=== PATIENT | female | born 1975 | race African-American/Black ===

== ENCOUNTER 2017-10-18 17:43 | Emergency (ER) | payer OTHER, MEDICAID ==
[~2017-10-18] VITALS: Ht 165.1 cm; Wt 68.2 kg
[2017-10-18] MEDS ORDERED: ACETAMINOPHEN 325 MG TABLET PO ONE (18:45)
[2017-10-18 20:17] VITALS: BP 112/76
[2017-10-18 21:10] LABS: INFLUENZA TYPE A NEGATIVE FOR TYPE A (NEGATIVE); INFLUENZA TYPE B NEGATIVE FOR TYPE B (NEGATIVE)
== END 2017-10-18 20:44 | disposition home or self-care (01) ==
LOC: EMS 17:46
DX: J40 Bronchitis, not specified as acute or chronic (principal); J11.1 Influenza due to unidentified influenza virus with other respiratory manifestations; F84.0 Autistic disorder
CPT/HCPCS: 87804; 99284

== ENCOUNTER 2018-04-11 18:23 | Emergency (ER) | payer OTHER, MEDICAID ==
[~2018-04-11] VITALS: Ht 157.5 cm; Wt 54.5 kg
[2018-04-11] MEDS ORDERED: ABX PO (18:31)
[2018-04-11 18:43] LABS: BASOPHILS % (AUTO) 0.4 % (0.0-2.0); EOSINOPHILS % (AUTO) 0.7 % (1.0-6.0); HEMATOCRIT 28.7 % (36-46); HEMOGLOBIN 9.8 g/dL (12.0-16.0); LYMPHOCYTES # (AUTO) 1.9 K/uL (1.0-4.8); LYMPHOCYTES % (AUTO) 46.3 % (22.0-44.0); MEAN CORPUSCULAR HEMOGLOBIN 36.7 pg (26.0-34.0); MEAN CORPUSCULAR HGB CONC 34.1 G/dL (31.0-37.0); MEAN CORPUSCULAR VOLUME 107 fL (80-100); MONOCYTES # (AUTO) 0.2 K/uL (0.1-1.0); MONOCYTES % (AUTO) 5.4 % (2.0-9.0); NEUTROPHILS % (AUTO) 47.2 % (40.0-70.0); PLATELET COUNT (AUTO) 161 K/uL (150-450); RED BLOOD CELL COUNT(AUTO) 2.67 MIL/uL (4.00-5.20); RED CELL DISTRIBUTION WIDTH 20.9 % (11.5-14.5)
[2018-04-11 18:50] LABS: PLATELET MORPHOLOGY COMMENT LARGE PLTS PRESENT
[2018-04-11 18:55] LABS: ANION GAP 7 mmol/L (8-16); CALCIUM, TOTAL 8.6 mg/dL (8.8-10.5); CARBON DIOXIDE 29 mmol/L (22-29); CHLORIDE 109 mmol/L (98-107); CREATININE 0.63 mg/dL (0.60-1.30); GLOMERULAR FILTR. RATE CALC > 60 mL/min (>60); GLUCOSE,RANDOM 79 mg/dL (70-110); POTASSIUM 3.1 mmol/L (3.5-5.1); SODIUM SERUM 145 mmol/L (136-145); UREA NITROGEN, BLOOD 14 mg/dL (7-18)
[2018-04-11 18:59] LABS: ALANINE AMINOTRANSFERASE 112 U/L (12-78); ALBUMIN 4.3 g/dL (3.4-5.0); ALKALINE PHOSPHATASE 68 U/L (46-116); ASPARTATE AMINOTRANSFERASE 85 U/L (15-37); TOTAL PROTEIN, SERUM 7.2 g/dL (6.4-8.2)
[2018-04-11] MEDS ORDERED: ONDANSETRON HCL 4 MG/2 ML VIAL IVP ONE (20:45)
[2018-04-11] MEDS ORDERED: MORPHINE SULFATE 4 MG/ML SYRINGE IVP ONE (20:45)
[2018-04-11] MEDS ORDERED: SODIUM CHLORIDE 0.9% 1,000 ML IV ONE (20:45)
[2018-04-11] MEDS ORDERED: SODIUM CHLORIDE 0.9% 100 ML ONE (21:34)
[2018-04-11] MEDS ORDERED: IOVERSOL 320 MG/ML 100 ML VIAL ONE (21:34)
[2018-04-11 22:49] LABS: LIPASE 135 U/L (73-393)
[2018-04-12] MEDS ORDERED: METOCLOPRAMIDE HCL 5 MG/ML 2 ML VIAL IVP ONE
[2018-04-12] MEDS ORDERED: POTASSIUM CHLORIDE 10% 40 MEQ/30 ML LIQUID UDCUP PO ONE (02:30)
[2018-04-12 02:52] VITALS: BP 109/78
== END 2018-04-12 02:52 | disposition home or self-care (01) ==
LOC: EMS 18:26
DX: N83.201 Unspecified ovarian cyst, right side (principal); E87.6 Hypokalemia; R74.0 Nonspecific elevation of levels of transaminase and lactic acid dehydrogenase [LDH]
CPT/HCPCS: 36415; 71045; 74177; 76856; 80053; 83690; 84484; 84703; 85025; 93005; 96361; 96374; 96375; 99285; J2270; J2405; J2765; J7030; J7050; Q9967

== ENCOUNTER 2018-07-29 16:56 | Emergency (ER) | payer OTHER, MEDICAID ==
[~2018-07-29] VITALS: Ht 152.4 cm; Wt 46.4 kg
[~2018-07-29 16:56] MED LIST: ABX PO
[2018-07-29 17:06] VITALS: BP 99/63
[2018-07-29] MEDS ORDERED: DEPOP150I IM (17:15)
== END 2018-07-29 18:48 | disposition left against medical advice (07) ==
LOC: EMS 16:57
DX: R10.30 Lower abdominal pain, unspecified (principal); R11.2 Nausea with vomiting, unspecified; Z53.21 Procedure and treatment not carried out due to patient leaving prior to being seen by health care provider

== ENCOUNTER 2018-08-19 20:18 | Emergency (ER) | payer OTHER, MEDICAID ==
[~2018-08-19] VITALS: Ht 152.4 cm; Wt 51.0 kg
[~2018-08-19 20:18] MED LIST changes: -ABX PO; +DEPOP150I IM
[2018-08-19] MEDS ORDERED: AMOX1TAB16 PO (20:22)
[2018-08-19 21:00] LABS: BASOPHILS % (AUTO) 0.6 % (0.0-2.0); EOSINOPHILS % (AUTO) 0.2 % (1.0-6.0); HEMOGLOBIN 8.8 g/dL (12.0-16.0); LYMPHOCYTES # (AUTO) 0.8 K/uL (1.0-4.8); LYMPHOCYTES % (AUTO) 23.3 % (22.0-44.0); MEAN CORPUSCULAR HEMOGLOBIN 38.6 pg (26.0-34.0); MEAN CORPUSCULAR HGB CONC 33.9 G/dL (31.0-37.0); MEAN CORPUSCULAR VOLUME 114 fL (80-100); MONOCYTES # (AUTO) 0.2 K/uL (0.1-1.0); MONOCYTES % (AUTO) 4.6 % (2.0-9.0); NEUTROPHILS # (AUTO) 2.6 K/uL (1.8-7.7); NEUTROPHILS % (AUTO) 71.3 % (40.0-70.0); PLATELET COUNT (AUTO) 180 K/uL (150-450); RED BLOOD CELL COUNT(AUTO) 2.28 MIL/uL (4.00-5.20); RED CELL DISTRIBUTION WIDTH 25.1 % (11.5-14.5)
[2018-08-19 21:07] LABS: ANION GAP 11 mmol/L (8-16); CARBON DIOXIDE 26 mmol/L (22-29); CHLORIDE 104 mmol/L (98-107); CREATININE 0.55 mg/dL (0.60-1.30); GLOMERULAR FILTR. RATE CALC > 60 mL/min (>60); GLUCOSE,RANDOM 131 mg/dL (70-110); POTASSIUM 3.2 mmol/L (3.5-5.1); SODIUM SERUM 141 mmol/L (136-145); UREA NITROGEN, BLOOD 16 mg/dL (7-18)
[2018-08-19] MEDS ORDERED: DIPHENOXYLATE/ATROP 2.5-0.025 MG/5 ML ORAL.SYG LIQUID PO ONE (21:15)
[2018-08-19] MEDS ORDERED: SODIUM CHLORIDE 0.9% 1,000 ML IV ONE (21:15)
[2018-08-19] MEDS ORDERED: ONDANSETRON HCL 4 MG/2 ML VIAL IVP ONE (21:15)
[2018-08-19 21:16] LABS: PLATELET MORPHOLOGY COMMENT LARGE PLTS PRESENT
[2018-08-19 21:18] LABS: ALANINE AMINOTRANSFERASE 57 U/L (12-78); ALBUMIN 4.6 g/dL (3.4-5.0); ALKALINE PHOSPHATASE 64 U/L (46-116); ASPARTATE AMINOTRANSFERASE 56 U/L (15-37); HCG,QUANTITATIVE < 1 mIU/mL (0-6); LIPASE 80 U/L (73-393)
[2018-08-19] MEDS ORDERED: KETOROLAC TROMETHAMINE 30 MG/ML VIAL IVP ONE (22:15)
[2018-08-19] MEDS ORDERED: POTASSIUM CHLORIDE 10% 40 MEQ/30 ML LIQUID UDCUP PO ONE (22:15)
[2018-08-19 23:05] VITALS: BP 135/87
== END 2018-08-19 23:18 | disposition home or self-care (01) ==
LOC: EMS 20:19
DX: K52.9 Noninfective gastroenteritis and colitis, unspecified (principal); F84.0 Autistic disorder; Z79.899 Other long term (current) drug therapy
CPT/HCPCS: 36415; 80053; 83690; 84702; 85025; 96361; 96374; 96375; 99284; J1885; J2405; J7030

== ENCOUNTER 2018-09-24 18:05 | Emergency (ER) | payer MEDICAID, OTHER ==
[~2018-09-24] VITALS: Ht 152.4 cm; Wt 54.5 kg
[~2018-09-24 18:05] MED LIST changes: +AMOX1TAB16 PO
[2018-09-24 18:44] LABS: BASOPHILS % (AUTO) 0.5 % (0.0-2.0); EOSINOPHILS % (AUTO) 1.4 % (1.0-6.0); HEMATOCRIT 26.9 % (36-46); HEMOGLOBIN 9.2 g/dL (12.0-16.0); LYMPHOCYTES # (AUTO) 1.5 K/uL (1.0-4.8); MEAN CORPUSCULAR HEMOGLOBIN 41.2 pg (26.0-34.0); MEAN CORPUSCULAR HGB CONC 34.3 G/dL (31.0-37.0); MEAN CORPUSCULAR VOLUME 120 fL (80-100); MONOCYTES # (AUTO) 0.1 K/uL (0.1-1.0); MONOCYTES % (AUTO) 4.4 % (2.0-9.0); NEUTROPHILS # (AUTO) 1.3 K/uL (1.8-7.7); NEUTROPHILS % (AUTO) 44.7 % (40.0-70.0); PLATELET COUNT (AUTO) 204 K/uL (150-450); RED BLOOD CELL COUNT(AUTO) 2.24 MIL/uL (4.00-5.20); RED CELL DISTRIBUTION WIDTH 17.8 % (11.5-14.5)
[2018-09-24 18:53] LABS: ANION GAP 3 mmol/L (8-16); CALCIUM, TOTAL 8.6 mg/dL (8.8-10.5); CARBON DIOXIDE 32 mmol/L (22-29); CHLORIDE 108 mmol/L (98-107); CREATININE 0.55 mg/dL (0.60-1.30); GLOMERULAR FILTR. RATE CALC > 60 mL/min (>60); GLUCOSE,RANDOM 93 mg/dL (70-110); POTASSIUM 3.7 mmol/L (3.5-5.1); SODIUM SERUM 143 mmol/L (136-145); UREA NITROGEN, BLOOD 16 mg/dL (7-18)
[2018-09-24 19:03] LABS: ALANINE AMINOTRANSFERASE 49 U/L (12-78); ALBUMIN 4.4 g/dL (3.4-5.0); ALKALINE PHOSPHATASE 69 U/L (46-116); ASPARTATE AMINOTRANSFERASE 73 U/L (15-37); HCG,QUANTITATIVE < 1 mIU/mL (0-6); LIPASE 119 U/L (73-393)
[2018-09-24] MEDS ORDERED: SODIUM CHLORIDE 0.9% 1,000 ML IV ONE (19:30)
[2018-09-24 20:05] LABS: C-REACTIVE PROTEIN QUANT < 0.05 mg/dL (0.00-0.30)
[2018-09-24 21:40] VITALS: BP 114/75
[2018-09-24 21:50] LABS: APPEARANCE,URINE CLOUDY (CLEAR); BILIRUBIN,URINE NEGATIVE (NEGATIVE); GLUCOSE, URINE (UA) NEGATIVE (NEGATIVE); KETONES,URINE NEGATIVE (NEGATIVE); LEUKOCYTE ESTERASE ,URINE TRACE (NEGATIVE); NITRATE,URINE NEGATIVE (NEGATIVE); OCCULT BLOOD,URINE NEGATIVE (NEGATIVE); PH,URINE 7.5 (5.0-8.0); PROTEIN,URINE NEGATIVE (NEGATIVE)
[2018-09-24 21:59] LABS: BACTERIA,URINE Many /HPF (None Seen); RBC,URINE None Seen /HPF (0-2); SQUAMOUS EPITHELIAL CELL,UR Few /LPF (None Seen)
== END 2018-09-24 22:03 | disposition home or self-care (01) ==
LOC: EMS 18:05
DX: K59.00 Constipation, unspecified (principal)
CPT/HCPCS: 36415; 74177; 80053; 81001; 83690; 84702; 85025; 86140; 87077; 87086; 87186; 99284; J7030

== ENCOUNTER 2019-02-03 11:46 | Emergency (ER) | payer OTHER ==
[~2019-02-03] VITALS: Ht 152.4 cm; Wt 56.8 kg
[2019-02-03] MEDS: PredniSONE 20 MG TABLET PO ONE ×2 (12:44→12:49)
[2019-02-03] MEDS ORDERED: IPRATROPIUM BROMIDE 0.5 MG/2.5 ML NEB SOLUTION NEB ONE (12:45)
[2019-02-03] MEDS ORDERED: ALBUTEROL SULFATE 2.5 MG/0.5 ML NEB SOLUTION NEB ONE (12:45)
[2019-02-03] MEDS ORDERED: ALBUTEROL SULFATE HFA 90 MCG/PUFF 8 GM INHALER IH ONE (13:30)
[2019-02-03 13:47] VITALS: BP 119/66
== END 2019-02-03 13:51 | disposition home or self-care (01) ==
LOC: EMS 11:47
DX: J45.909 Unspecified asthma, uncomplicated (principal)
CPT/HCPCS: 94640; 99284; J7512; J3535

== ENCOUNTER 2019-03-26 16:12 | Emergency (ER) | payer OTHER ==
[~2019-03-26] VITALS: Ht 152.4 cm; Wt 50.0 kg
[2019-03-26] MEDS ORDERED: ONDANSETRON HCL 4 MG TABLET PO ONE (19:45)
[2019-03-26] MEDS ORDERED: ACETAMINOPHEN 500 MG TABLET PO ONE (19:45)
[2019-03-26 19:53] LABS: MEAN CORPUSCULAR HEMOGLOBIN 37.9 pg (26.0-34.0); MEAN CORPUSCULAR HGB CONC 33.8 G/dL (31.0-37.0); MEAN CORPUSCULAR VOLUME 112 fL (80-100); PLATELET COUNT (AUTO) 88 K/uL (150-450); RED CELL DISTRIBUTION WIDTH 22.1 % (11.5-14.5)
[2019-03-26 19:59] LABS: ANION GAP 8 mmol/L (8-16); CALCIUM, TOTAL 8.7 mg/dL (8.8-10.5); CARBON DIOXIDE 28 mmol/L (22-29); CHLORIDE 110 mmol/L (98-107); CREATININE 0.51 mg/dL (0.60-1.30); GLOMERULAR FILTR. RATE CALC > 60 mL/min (>60); GLUCOSE,RANDOM 68 mg/dL (70-110); POTASSIUM 3.7 mmol/L (3.5-5.1); SODIUM SERUM 146 mmol/L (136-145); UREA NITROGEN, BLOOD 17 mg/dL (7-18)
[2019-03-26 20:04] LABS: HEMOGLOBIN 5.7 g/dL (12.0-16.0)
[2019-03-26 20:05] LABS: HEMATOCRIT 16.9 % (36-46)
[2019-03-26 20:10] LABS: ALANINE AMINOTRANSFERASE 53 U/L (12-78); ALBUMIN 3.8 g/dL (3.4-5.0); ALKALINE PHOSPHATASE 74 U/L (46-116); ASPARTATE AMINOTRANSFERASE 244 U/L (15-37); BILIRUBIN,TOTAL 1.2 mg/dL (0.1-1.0); HCG,QUANTITATIVE < 1 mIU/mL (0-6); LIPASE 80 U/L (73-393)
[2019-03-26] MEDS ORDERED: DiphenhydrAMINE HCL 25 MG CAPSULE PO ONE (20:15)
[2019-03-26 20:30] LABS: BAND NEUTROPHILS % (MANUAL) 0 % (0-5)
[2019-03-26 20:32] LABS: % IRON SATURATION 42.4 % (22-44)
[2019-03-26 20:37] LABS: LYMPHOCYTES % (MANUAL) 62 % (22-44); MONOCYTES % (MANUAL) 3 % (2-9); REACTIVE LYMPHOCYTES 6 % (0-0); SEGMENTED NEUTROPHILS % 29 % (40-70)
[2019-03-26 20:38] LABS: PLATELET MORPHOLOGY COMMENT DECREASED
[2019-03-26 21:52] VITALS: BP 102/76
== END 2019-03-26 22:47 | disposition short-term general hospital (02) ==
LOC: EMS 16:13
DX: D61.818 Other pancytopenia (principal); D64.9 Anemia, unspecified; F84.0 Autistic disorder; F12.90 Cannabis use, unspecified, uncomplicated; Z90.49 Acquired absence of other specified parts of digestive tract
CPT/HCPCS: 36415; 71045; 74176; 80053; 82271; 83540; 83550; 83690; 84702; 85025; 85045; 86850; 86900; 86901; 99285; Q0162

== ENCOUNTER 2019-11-30 13:02 | Emergency (ER) | payer OTHER ==
[~2019-11-30] VITALS: Ht 152.4 cm; Wt 54.5 kg
[2019-11-30 15:01] LABS: BASOPHILS % (AUTO) 1.2 % (0.0-2.0); EOSINOPHILS % (AUTO) 1.3 % (1.0-6.0); HEMATOCRIT 35.6 % (36-46); HEMOGLOBIN 11.5 g/dL (12.0-16.0); LYMPHOCYTES # (AUTO) 1.3 K/uL (1.0-4.8); LYMPHOCYTES % (AUTO) 51.8 % (22.0-44.0); MEAN CORPUSCULAR HEMOGLOBIN 25.3 pg (26.0-34.0); MEAN CORPUSCULAR HGB CONC 32.5 G/dL (31.0-37.0); MEAN CORPUSCULAR VOLUME 78 fL (80-100); MONOCYTES # (AUTO) 0.2 K/uL (0.1-1.0); MONOCYTES % (AUTO) 9.3 % (2.0-9.0); NEUTROPHILS # (AUTO) 0.9 K/uL (1.8-7.7); NEUTROPHILS % (AUTO) 36.4 % (40.0-70.0); PLATELET COUNT (AUTO) 146 K/uL (150-450); RED BLOOD CELL COUNT(AUTO) 4.56 MIL/uL (4.00-5.20); RED CELL DISTRIBUTION WIDTH 15.8 % (11.5-14.5)
[2019-11-30 15:40] VITALS: BP 125/69
== END 2019-11-30 15:48 | disposition home or self-care (01) ==
LOC: EMS 13:02
DX: J45.909 Unspecified asthma, uncomplicated (principal); F12.90 Cannabis use, unspecified, uncomplicated; Z90.49 Acquired absence of other specified parts of digestive tract; Z98.890 Other specified postprocedural states

== ENCOUNTER 2020-01-20 15:48 | Emergency (ER) | payer OTHER ==
[~2020-01-20] VITALS: Ht 170.2 cm; Wt 72.7 kg
[2020-01-20 17:15] LABS: BASOPHILS % (AUTO) 1.3 % (0.0-2.0); EOSINOPHILS % (AUTO) 1.9 % (1.0-6.0); HEMATOCRIT 35.1 % (36-46); HEMOGLOBIN 11.3 g/dL (12.0-16.0); LYMPHOCYTES # (AUTO) 1.4 K/uL (1.0-4.8); LYMPHOCYTES % (AUTO) 52.4 % (22.0-44.0); MEAN CORPUSCULAR HEMOGLOBIN 25.9 pg (26.0-34.0); MEAN CORPUSCULAR HGB CONC 32.2 G/dL (31.0-37.0); MEAN CORPUSCULAR VOLUME 80 fL (80-100); MONOCYTES # (AUTO) 0.2 K/uL (0.1-1.0); MONOCYTES % (AUTO) 7.2 % (2.0-9.0); NEUTROPHILS % (AUTO) 37.2 % (40.0-70.0); PLATELET COUNT (AUTO) 137 K/uL (150-450); RED BLOOD CELL COUNT(AUTO) 4.37 MIL/uL (4.00-5.20); RED CELL DISTRIBUTION WIDTH 18.8 % (11.5-14.5)
[2020-01-20 17:19] LABS: ANION GAP 9 mmol/L (8-16); CALCIUM, TOTAL 8.7 mg/dL (8.8-10.5); CARBON DIOXIDE 26 mmol/L (22-29); CHLORIDE 106 mmol/L (98-107); CREATININE 0.74 mg/dL (0.60-1.30); GLOMERULAR FILTR. RATE CALC > 60 mL/min (>60); GLUCOSE,RANDOM 101 mg/dL (70-110); POTASSIUM 3.4 mmol/L (3.5-5.1); SODIUM SERUM 141 mmol/L (136-145); UREA NITROGEN, BLOOD 12 mg/dL (7-18)
[2020-01-20 17:30] LABS: ALANINE AMINOTRANSFERASE 20 U/L (12-78); ALKALINE PHOSPHATASE 75 U/L (46-116); ASPARTATE AMINOTRANSFERASE 19 U/L (15-37); BILIRUBIN,TOTAL 0.4 mg/dL (0.1-1.0); HCG,QUANTITATIVE < 1 mIU/mL (0-6); TOTAL PROTEIN, SERUM 7.3 g/dL (6.4-8.2)
[2020-01-20 18:18] VITALS: BP 106/79
== END 2020-01-20 19:12 | disposition home or self-care (01) ==
LOC: EMS 15:48
DX: D69.6 Thrombocytopenia, unspecified (principal); D72.819 Decreased white blood cell count, unspecified; J40 Bronchitis, not specified as acute or chronic; F12.90 Cannabis use, unspecified, uncomplicated; Z90.49 Acquired absence of other specified parts of digestive tract
CPT/HCPCS: 93005

== ENCOUNTER 2020-02-09 23:23 | Emergency (ER) | payer OTHER ==
[~2020-02-09] VITALS: Ht 162.6 cm; Wt 63.6 kg
[2020-02-10] MEDS ORDERED: SODIUM CHLORIDE 0.9% 1,000 ML IV ONE (00:15)
[2020-02-10 01:16] LABS: BASOPHILS % (AUTO) 0.5 % (0.0-2.0); EOSINOPHILS % (AUTO) 0.1 % (1.0-6.0); HEMATOCRIT 35.6 % (36-46); HEMOGLOBIN 11.4 g/dL (12.0-16.0); LYMPHOCYTES # (AUTO) 0.8 K/uL (1.0-4.8); LYMPHOCYTES % (AUTO) 37.1 % (22.0-44.0); MEAN CORPUSCULAR HEMOGLOBIN 26.1 pg (26.0-34.0); MEAN CORPUSCULAR HGB CONC 31.9 G/dL (31.0-37.0); MEAN CORPUSCULAR VOLUME 82 fL (80-100); MONOCYTES # (AUTO) 0.2 K/uL (0.1-1.0); MONOCYTES % (AUTO) 9.5 % (2.0-9.0); NEUTROPHILS # (AUTO) 1.1 K/uL (1.8-7.7); NEUTROPHILS % (AUTO) 52.8 % (40.0-70.0); RED BLOOD CELL COUNT(AUTO) 4.35 MIL/uL (4.00-5.20); RED CELL DISTRIBUTION WIDTH 18.9 % (11.5-14.5)
[2020-02-10 01:33] LABS: ANION GAP 6 mmol/L (8-16); CALCIUM, TOTAL 9.1 mg/dL (8.8-10.5); CARBON DIOXIDE 28 mmol/L (22-29); CHLORIDE 103 mmol/L (98-107); CREATININE 0.65 mg/dL (0.60-1.30); GLOMERULAR FILTR. RATE CALC > 60 mL/min (>60); GLUCOSE,RANDOM 71 mg/dL (70-110); POTASSIUM 3.2 mmol/L (3.5-5.1); SODIUM SERUM 137 mmol/L (136-145); UREA NITROGEN, BLOOD 17 mg/dL (7-18)
[2020-02-10] MEDS ORDERED: FERR236T3 PO (01:38)
[2020-02-10 01:39] LABS: ALANINE AMINOTRANSFERASE 31 U/L (12-78); ALBUMIN 4.2 g/dL (3.4-5.0); ALKALINE PHOSPHATASE 84 U/L (46-116); ASPARTATE AMINOTRANSFERASE 26 U/L (15-37); BILIRUBIN,TOTAL 0.4 mg/dL (0.1-1.0); LIPASE 95 U/L (73-393); TOTAL PROTEIN, SERUM 8.2 g/dL (6.4-8.2)
[2020-02-10 01:53] LABS: PLATELET COUNT (AUTO) 121 K/uL (150-450)
[2020-02-10] MEDS ORDERED: IBUPROFEN 600 MG TABLET PO ONE (02:00)
[2020-02-10] MEDS ORDERED: POTASSIUM CHLORIDE 20 MEQ ER TABLET PO ONE (02:00)
[2020-02-10 02:16] LABS: APPEARANCE,URINE CLEAR (CLEAR); BILIRUBIN,URINE NEGATIVE (NEGATIVE); GLUCOSE, URINE (UA) NEGATIVE (NEGATIVE); KETONES,URINE 40 mg/dL (NEGATIVE); LEUKOCYTE ESTERASE ,URINE NEGATIVE (NEGATIVE); NITRATE,URINE NEGATIVE (NEGATIVE); OCCULT BLOOD,URINE TRACE (NEGATIVE); PROTEIN,URINE SEE CONFIRM (NEGATIVE)
[2020-02-10 02:30] LABS: INFLUENZA TYPE A NEGATIVE FOR TYPE A (NEGATIVE); INFLUENZA TYPE B NEGATIVE FOR TYPE B (NEGATIVE)
[2020-02-10 02:33] LABS: SULFOSALICYLIC ACID,URINE 3+ (Negative)
[2020-02-10 02:34] LABS: BACTERIA,URINE None Seen /HPF (None Seen); RBC,URINE 0-2 /HPF (0-2); SQUAMOUS EPITHELIAL CELL,UR Moderate /LPF (None Seen)
[2020-02-10 02:50] VITALS: BP 129/93
== END 2020-02-10 03:22 | disposition home or self-care (01) ==
LOC: EMS 23:23
DX: U07.1 COVID-19 (principal); E87.6 Hypokalemia; R11.2 Nausea with vomiting, unspecified; J45.909 Unspecified asthma, uncomplicated; F12.90 Cannabis use, unspecified, uncomplicated
CPT/HCPCS: 36415; 71045; 80053; 81001; 83690; 84703; 85025; 87635; 87804; 93005; 96360; 99285; J7030

== ENCOUNTER 2020-02-11 18:36 | Inpatient (IN) | payer OTHER ==
[~2020-02-11] VITALS: Ht 162.6 cm; Wt 50.0 kg
[~2020-02-11 18:36] MED LIST changes: -AMOX1TAB16 PO; -DEPOP150I IM; +FERR236T3 PO
[2020-02-11 19:59] LABS: BASOPHILS % (AUTO) 0.4 % (0.0-2.0); EOSINOPHILS % (AUTO) 0 % (1.0-6.0); HEMATOCRIT 36.9 % (36-46); HEMOGLOBIN 11.9 g/dL (12.0-16.0); LYMPHOCYTES # (AUTO) 0.5 K/uL (1.0-4.8); LYMPHOCYTES % (AUTO) 20.2 % (22.0-44.0); MEAN CORPUSCULAR HEMOGLOBIN 26.1 pg (26.0-34.0); MEAN CORPUSCULAR HGB CONC 32.1 G/dL (31.0-37.0); MEAN CORPUSCULAR VOLUME 81 fL (80-100); MONOCYTES # (AUTO) 0.2 K/uL (0.1-1.0); NEUTROPHILS % (AUTO) 72.4 % (40.0-70.0); PLATELET COUNT (AUTO) 100 K/uL (150-450); RED BLOOD CELL COUNT(AUTO) 4.55 MIL/uL (4.00-5.20); RED CELL DISTRIBUTION WIDTH 18.4 % (11.5-14.5)
[2020-02-11 20:08] LABS: ANION GAP 6 mmol/L (8-16); CALCIUM, TOTAL 8.8 mg/dL (8.8-10.5); CARBON DIOXIDE 27 mmol/L (22-29); CHLORIDE 103 mmol/L (98-107); CREATININE 0.53 mg/dL (0.60-1.30); GLOMERULAR FILTR. RATE CALC > 60 mL/min (>60); GLUCOSE,RANDOM 88 mg/dL (70-110); POTASSIUM 3.3 mmol/L (3.5-5.1); SODIUM SERUM 136 mmol/L (136-145); UREA NITROGEN, BLOOD 11 mg/dL (7-18)
[2020-02-11 20:17] LABS: D-DIMER 0.5 mg/L FEU (0.00-0.50)
[2020-02-11 20:19] LABS: INFLUENZA TYPE A NEGATIVE FOR TYPE A (NEGATIVE); INFLUENZA TYPE B NEGATIVE FOR TYPE B (NEGATIVE)
[2020-02-11 20:20] LABS: PLATELET MORPHOLOGY COMMENT LARGE PLTS PRESENT
[2020-02-11 20:24] LABS: LACTIC ACID 0.8 mmol/L (0.4-2.0)
[2020-02-11 20:27] LABS: ALANINE AMINOTRANSFERASE 28 U/L (12-78); ALKALINE PHOSPHATASE 77 U/L (46-116); ASPARTATE AMINOTRANSFERASE 34 U/L (15-37); BILIRUBIN,TOTAL 0.5 mg/dL (0.1-1.0); C-REACTIVE PROTEIN QUANT 1.34 mg/dL (0.00-0.30); HCG,QUANTITATIVE < 1 mIU/mL (0-6); LIPASE 110 U/L (73-393); TOTAL PROTEIN, SERUM 8.3 g/dL (6.4-8.2)
[2020-02-11] MEDS ORDERED: HYDROXYCHLOROQUINE SULFATE 200 MG TABLET PO ONE ×2 (20:30→22:30)
[2020-02-11] MEDS ORDERED: AZITHROMYCIN 500 MG TABLET PO ONE (20:30)
[2020-02-11] MEDS ORDERED: IOVERSOL 350 MG/ML 100 ML VIAL ONE (20:54)
[2020-02-11] MEDS ORDERED: SODIUM CHLORIDE 0.9% 100 ML ONE (20:54)
[2020-02-11 22:27] LABS: APPEARANCE,URINE CLEAR (CLEAR); GLUCOSE, URINE (UA) NEGATIVE (NEGATIVE); KETONES,URINE >=80 mg/dL (NEGATIVE); LEUKOCYTE ESTERASE ,URINE TRACE (NEGATIVE); NITRATE,URINE NEGATIVE (NEGATIVE); OCCULT BLOOD,URINE NEGATIVE (NEGATIVE); PH,URINE 6.5 (5.0-8.0); PROTEIN,URINE SEE CONFIRM (NEGATIVE)
[2020-02-11 22:28] LABS: BILIRUBIN,URINE PRELIM. POSITIVE (NEGATIVE)
[2020-02-11] MEDS ORDERED: ZOLPIDEM TARTRATE 5 MG TABLET PO PRN (22:30)
[2020-02-11] MEDS ORDERED: 0.9% SODIUM CHLORIDE 10 ML SYRINGE IVP PRN (22:30)
[2020-02-11] MEDS ORDERED: AZITHROMYCIN 200 MG/5 ML SUSPENSION ORAL.SYG PO ONE (22:30)
[2020-02-11] MEDS ORDERED: ACETAMINOPHEN 325 MG TABLET PO PRN (22:30)
[2020-02-11] MEDS ORDERED: MAGNESIUM HYDROXIDE SUSPENSION 30 ML UDCUP PO PRN (22:30)
[2020-02-11] MEDS ORDERED: BISACODYL 10 MG RECTAL RECTAL SUPPOSITORY PR PRN (22:30)
[2020-02-11 22:33] LABS: BACTERIA,URINE Few /HPF (None Seen); RBC,URINE 0-2 /HPF (0-2); SQUAMOUS EPITHELIAL CELL,UR Few /LPF (None Seen); SULFOSALICYLIC ACID,URINE 3+ (Negative)
[2020-02-11 23:17] LABS: LACTATE DEHYDROGENASE 285 U/L (81-234)
[2020-02-11] MEDS: HEPARIN SODIUM,PORCINE 5,000 UNITS/ML VIAL SQ SCH (23:59)
[2020-02-12 00:23] LABS: ABG BASE EXCESS -2.5 mmol/L (-2.0-3.0); ABG CARBOXYHEMOGLOBIN 0.6 % (0.0-1.5); ABG HCO3 22.7 mmol/L (22.0-26.0); ABG METHEMOGLOBIN 0.3 % (0.0-1.5); ABG OXYGEN CONTENT 16.8 mL/dL (15.0-23.0); ABG OXYGEN SATURATION 96.2 % (95.0-98.0); ABG OXYHEMOGLOBIN 95.3 % (94.0-100.0); ABG PCO2 37 mmHg (35-45); ABG PH 7.397 (7.35-7.450); ABG TOTAL HEMOGLOBIN 12.5 G/dL (12.0-18.0); SOURCE, BLOOD GAS ARTERIAL; TEMPERATURE, FAHRENHEIT, BG 99.2 FAHREN (96.0-98.6)
[2020-02-12 00:24] LABS: O2 DEVICE,BLOOD GAS ROOM AIR (ROOM AIR); SITE, BLOOD GAS LFT RADIAL
[2020-02-12 00:41] VITALS: BP 111/81
[2020-02-12 03:39] VITALS: BP 108/75
[2020-02-12] MEDS ORDERED: SODIUM CHLORIDE 0.9% 500 ML IV ONE (04:58)
[2020-02-12] MEDS: POTASSIUM CHL 10 MEQ/WATER 50 ML IV PRN ×3 (05:29→08:42)
[2020-02-12] MEDS: ONDANSETRON HCL 4 MG/2 ML VIAL IVP PRN ×3 (05:29→22:09)
[2020-02-12] MEDS: ASCORBIC ACID 500 MG TABLET PO SCH ×3 (08:40→21:47)
[2020-02-12] MEDS: PANTOPRAZOLE SODIUM 40 MG DR TABLET PO SCH (08:41)
[2020-02-12] MEDS: DOCUSATE SODIUM 100 MG CAPSULE PO SCH ×2 (08:41→21:45)
[2020-02-12] MEDS: THIAMINE 100 MG/ML 2 ML VIAL IVP SCH ×2 (08:42→22:45)
[2020-02-12] MEDS: HEPARIN SODIUM,PORCINE 5,000 UNITS/ML VIAL SQ SCH ×2 (08:42→15:27)
[2020-02-12] MEDS ORDERED: AZITHROMYCIN 500 MG TABLET PO SCH (09:00)
[2020-02-12] MEDS ORDERED: HYDROXYCHLOROQUINE SULFATE 200 MG TABLET PO ONE (09:00)
[2020-02-12 10:29] VITALS: BP 118/72
[2020-02-12 15:33] VITALS: BP 120/78
[2020-02-12] MEDS: POTASSIUM CHLORIDE 20 MEQ ER TABLET PO PRN (18:52)
[2020-02-12 20:00] VITALS: BP 114/69
[2020-02-12] MEDS: ZINC GLUCONATE 50 MG TABLET PO SCH (21:45)
[2020-02-12] MEDS: MetroNIDAZOLE 500 MG TABLET PO SCH (21:46)
[2020-02-12] MEDS: ACETAMINOPHEN 325 MG TABLET PO PRN (22:10)
[2020-02-12] MEDS: HYDROXYCHLOROQUINE SULFATE 200 MG TABLET PO SCH (22:44)
[2020-02-13] VITALS: BP 109/77
[2020-02-13] MEDS: HEPARIN SODIUM,PORCINE 5,000 UNITS/ML VIAL SQ SCH ×4 (00:48→22:50)
[2020-02-13 04:00] VITALS: BP 101/66
[2020-02-13 06:55] LABS: HEMATOCRIT 35.4 % (36-46); HEMOGLOBIN 11.7 g/dL (12.0-16.0); MEAN CORPUSCULAR HEMOGLOBIN 26.6 pg (26.0-34.0); MEAN CORPUSCULAR HGB CONC 33.1 G/dL (31.0-37.0); MEAN CORPUSCULAR VOLUME 81 fL (80-100); PLATELET COUNT (AUTO) 95 K/uL (150-450); RED CELL DISTRIBUTION WIDTH 18.8 % (11.5-14.5)
[2020-02-13 07:02] LABS: INR 1.1 (0.9-1.1); PROTHROMBIN TIME 10.9 SEC (9.4-11.6)
[2020-02-13 07:26] LABS: ALANINE AMINOTRANSFERASE 28 U/L (12-78); ALBUMIN 3.8 g/dL (3.4-5.0); ALKALINE PHOSPHATASE 71 U/L (46-116); ANION GAP 12 mmol/L (8-16); ASPARTATE AMINOTRANSFERASE 32 U/L (15-37); BILIRUBIN,TOTAL 0.4 mg/dL (0.1-1.0); C-REACTIVE PROTEIN QUANT 1.53 mg/dL (0.00-0.30); CARBON DIOXIDE 26 mmol/L (22-29); CHLORIDE 104 mmol/L (98-107); CREATININE 0.68 mg/dL (0.60-1.30); FERRITIN 57 ng/mL (8-252); GLOMERULAR FILTR. RATE CALC > 60 mL/min (>60); GLUCOSE,RANDOM 81 mg/dL (70-110); LACTATE DEHYDROGENASE 181 U/L (81-234); POTASSIUM 3.2 mmol/L (3.5-5.1); SODIUM SERUM 142 mmol/L (136-145); TOTAL PROTEIN, SERUM 8.1 g/dL (6.4-8.2); UREA NITROGEN, BLOOD 17 mg/dL (7-18)
[2020-02-13 07:45] LABS: BAND NEUTROPHILS % (MANUAL) 3 % (0-5); LYMPHOCYTES % (MANUAL) 30 % (22-44); MONOCYTES % (MANUAL) 3 % (2-9); SEGMENTED NEUTROPHILS % 63 % (40-70)
[2020-02-13 08:00] VITALS: BP 121/78
[2020-02-13] MEDS: MetroNIDAZOLE 500 MG TABLET PO SCH ×2 (08:20→22:49)
[2020-02-13] MEDS: DOCUSATE SODIUM 100 MG CAPSULE PO SCH ×2 (08:20→20:41)
[2020-02-13] MEDS: ZINC GLUCONATE 50 MG TABLET PO SCH ×2 (08:20→22:50)
[2020-02-13] MEDS: HYDROXYCHLOROQUINE SULFATE 200 MG TABLET PO SCH ×2 (08:21→22:50)
[2020-02-13] MEDS: POTASSIUM CHLORIDE 20 MEQ ER TABLET PO PRN ×2 (08:21→16:51)
[2020-02-13] MEDS: ASCORBIC ACID 500 MG TABLET PO SCH ×3 (08:21→22:50)
[2020-02-13] MEDS: THIAMINE 100 MG/ML 2 ML VIAL IVP SCH ×2 (08:22→20:00)
[2020-02-13] MEDS: PANTOPRAZOLE SODIUM 40 MG DR TABLET PO SCH (08:22)
[2020-02-13 12:00] VITALS: BP 118/75
[2020-02-13] MEDS: AZITHROMYCIN 250 MG TABLET PO SCH (15:45)
[2020-02-13 16:00] VITALS: BP 110/78
[2020-02-13 20:00] VITALS: BP 109/66
[2020-02-13] MEDS: ONDANSETRON HCL 4 MG/2 ML VIAL IVP PRN (20:00)
[2020-02-13] MEDS ORDERED: PROMETHAZINE HCL 25 MG TABLET PO PRN (22:00)
[2020-02-14] VITALS: BP 104/73
[2020-02-14] MEDS: ONDANSETRON HCL 4 MG/2 ML VIAL IVP PRN ×2 (02:44→12:56)
[2020-02-14 06:14] LABS: HIV 1-2 SCREEN 4TH GEN W/RFLX Non Reactive (Non Reactive)
[2020-02-14] MEDS: HEPARIN SODIUM,PORCINE 5,000 UNITS/ML VIAL SQ SCH ×2 (08:00→16:00)
[2020-02-14] MEDS: HYDROXYCHLOROQUINE SULFATE 200 MG TABLET PO SCH ×2 (09:00→21:00)
[2020-02-14] MEDS: ASCORBIC ACID 500 MG TABLET PO SCH ×3 (09:00→21:00)
[2020-02-14] MEDS: ZINC GLUCONATE 50 MG TABLET PO SCH ×2 (09:00→21:00)
[2020-02-14] MEDS: THIAMINE 100 MG/ML 2 ML VIAL IVP SCH ×2 (09:00→21:31)
[2020-02-14] MEDS: DOCUSATE SODIUM 100 MG CAPSULE PO SCH ×2 (09:00→21:00)
[2020-02-14] MEDS: AZITHROMYCIN 250 MG TABLET PO SCH (09:00)
[2020-02-14] MEDS: MetroNIDAZOLE 500 MG TABLET PO SCH (09:00)
[2020-02-14] MEDS: PANTOPRAZOLE SODIUM 40 MG DR TABLET PO SCH (09:00)
[2020-02-14 09:21] LABS: BASOPHILS % (AUTO) 0.3 % (0.0-2.0); EOSINOPHILS % (AUTO) 0 % (1.0-6.0); HEMATOCRIT 37.3 % (36-46); HEMOGLOBIN 11.9 g/dL (12.0-16.0); LYMPHOCYTES # (AUTO) 0.7 K/uL (1.0-4.8); LYMPHOCYTES % (AUTO) 33.1 % (22.0-44.0); MEAN CORPUSCULAR HEMOGLOBIN 25.9 pg (26.0-34.0); MEAN CORPUSCULAR VOLUME 81 fL (80-100); MONOCYTES # (AUTO) 0.2 K/uL (0.1-1.0); MONOCYTES % (AUTO) 9.5 % (2.0-9.0); NEUTROPHILS # (AUTO) 1.2 K/uL (1.8-7.7); NEUTROPHILS % (AUTO) 57.1 % (40.0-70.0); PLATELET COUNT (AUTO) 101 K/uL (150-450); RED CELL DISTRIBUTION WIDTH 18.6 % (11.5-14.5)
[2020-02-14 09:35] LABS: ANION GAP 9 mmol/L (8-16); CALCIUM, TOTAL 9.3 mg/dL (8.8-10.5); CARBON DIOXIDE 26 mmol/L (22-29); CHLORIDE 101 mmol/L (98-107); CREATININE 0.69 mg/dL (0.60-1.30); GLOMERULAR FILTR. RATE CALC > 60 mL/min (>60); GLUCOSE,RANDOM 75 mg/dL (70-110); POTASSIUM 3.5 mmol/L (3.5-5.1); SODIUM SERUM 136 mmol/L (136-145); UREA NITROGEN, BLOOD 18 mg/dL (7-18)
[2020-02-14 09:45] LABS: D-DIMER 0.57 mg/L FEU (0.00-0.50)
[2020-02-14 10:02] VITALS: BP 105/81
[2020-02-14] MEDS ORDERED: LORazepam 0.5 MG TABLET PO PRN (10:30)
[2020-02-14 12:31] VITALS: BP 111/74
[2020-02-14] MEDS ORDERED: AZITHROMYCIN 250 MG in SODIUM CHLORIDE 0.9% 150 ML IV ONE (14:15)
[2020-02-14 16:45] VITALS: BP 126/94
[2020-02-14] MEDS: MetroNIDAZOLE 500 MG/NACL 100 ML IV SCH (18:49)
[2020-02-14] MEDS: POTASSIUM CHL 10 MEQ/WATER 50 ML IV PRN ×2 (18:49→21:31)
[2020-02-14 20:00] VITALS: BP 125/85
[2020-02-15] VITALS: BP 115/80
[2020-02-15] MEDS: POTASSIUM CHLORIDE 20 MEQ ER TABLET PO PRN (00:46)
[2020-02-15] MEDS: ONDANSETRON HCL 4 MG/2 ML VIAL IVP PRN ×2 (00:46→04:14)
[2020-02-15] MEDS: HEPARIN SODIUM,PORCINE 5,000 UNITS/ML VIAL SQ SCH ×4 (00:46→16:00)
[2020-02-15 04:00] VITALS: BP 107/75
[2020-02-15] MEDS: MetroNIDAZOLE 500 MG/NACL 100 ML IV SCH ×2 (04:13→16:51)
[2020-02-15 08:00] VITALS: BP 115/78
[2020-02-15] MEDS: ZINC GLUCONATE 50 MG TABLET PO SCH ×2 (09:00→21:00)
[2020-02-15] MEDS: DOCUSATE SODIUM 100 MG CAPSULE PO SCH ×2 (09:00→21:00)
[2020-02-15] MEDS: PANTOPRAZOLE SODIUM 40 MG DR TABLET PO SCH (09:00)
[2020-02-15] MEDS: THIAMINE 100 MG/ML 2 ML VIAL IVP SCH (09:00)
[2020-02-15] MEDS: ASCORBIC ACID 500 MG TABLET PO SCH (09:00)
[2020-02-15] MEDS: HYDROXYCHLOROQUINE SULFATE 200 MG TABLET PO SCH ×2 (09:00→21:00)
[2020-02-15 09:12] LABS: ANION GAP 11 mmol/L (8-16); CARBON DIOXIDE 28 mmol/L (22-29); CHLORIDE 105 mmol/L (98-107); CREATININE 0.67 mg/dL (0.60-1.30); GLOMERULAR FILTR. RATE CALC > 60 mL/min (>60); GLUCOSE,RANDOM 82 mg/dL (70-110); POTASSIUM 3.4 mmol/L (3.5-5.1); SODIUM SERUM 144 mmol/L (136-145); UREA NITROGEN, BLOOD 19 mg/dL (7-18)
[2020-02-15 11:37] VITALS: BP 118/85
[2020-02-15] MEDS ORDERED: SODIUM CHLORIDE 0.9% 250 ML IV ONE (11:53)
[2020-02-15] MEDS: POTASSIUM CHL 10 MEQ/WATER 50 ML IV PRN ×3 (12:21→16:51)
[2020-02-15] MEDS: LORazepam 2 MG/ML VIAL IVP PRN (12:22)
[2020-02-15 15:41] VITALS: BP 125/89
[2020-02-15 21:30] VITALS: BP 117/75
[2020-02-15] MEDS: AZITHROMYCIN 250 MG in SODIUM CHLORIDE 0.9% 150 ML IV SCH (21:57)
[2020-02-16] VITALS (7 sets, daily range): BP systolic 101–118; BP diastolic 70–86
[2020-02-16] MEDS: MetroNIDAZOLE 500 MG/NACL 100 ML IV SCH ×2 (03:56→16:12)
[2020-02-16] MEDS: HEPARIN SODIUM,PORCINE 5,000 UNITS/ML VIAL SQ SCH ×3 (08:17→16:11)
[2020-02-16] MEDS: PANTOPRAZOLE SODIUM 40 MG DR TABLET PO SCH (08:26)
[2020-02-16] MEDS: HYDROXYCHLOROQUINE SULFATE 200 MG TABLET PO SCH ×2 (08:26→21:00)
[2020-02-16] MEDS: ZINC SULFATE 220 MG CAPSULE PO SCH ×2 (08:26→21:00)
[2020-02-16] MEDS: DOCUSATE SODIUM 100 MG CAPSULE PO SCH ×2 (08:26→21:00)
[2020-02-16] MEDS: ONDANSETRON HCL 4 MG/2 ML VIAL IVP PRN (10:59)
[2020-02-16] MEDS: ACETAMINOPHEN 650 MG RECTAL SUPPOSITORY PR PRN ×2 (10:59→18:20)
[2020-02-16] MEDS: LORazepam 2 MG/ML VIAL IVP PRN (16:12)
[2020-02-16] MEDS ORDERED: LORazepam 2 MG/ML VIAL IM PRN (18:00)
[2020-02-16] MEDS ORDERED: LORazepam 2 MG/ML VIAL IVP PRN (18:00)
[2020-02-16] MEDS: AZITHROMYCIN 250 MG in SODIUM CHLORIDE 0.9% 150 ML IV SCH (18:02)
[2020-02-16] MEDS: LevETIRAcetam 500 MG in DEXTROSE 5%-WATER 100 ML IV SCH (18:19)
[2020-02-17] MEDS: HEPARIN SODIUM,PORCINE 5,000 UNITS/ML VIAL SQ SCH ×4 (00:28→16:00)
[2020-02-17 00:31] VITALS: BP 109/74
[2020-02-17] MEDS: MetroNIDAZOLE 500 MG/NACL 100 ML IV SCH ×2 (04:07→16:00)
[2020-02-17 04:15] VITALS: BP 99/72
[2020-02-17] MEDS: LevETIRAcetam 500 MG in DEXTROSE 5%-WATER 100 ML IV SCH ×2 (05:59→17:42)
[2020-02-17 08:00] VITALS: BP 97/71
[2020-02-17] MEDS: HYDROXYCHLOROQUINE SULFATE 200 MG TABLET PO SCH ×2 (09:00→21:00)
[2020-02-17] MEDS: ZINC SULFATE 220 MG CAPSULE PO SCH ×2 (09:00→21:00)
[2020-02-17] MEDS: DOCUSATE SODIUM 100 MG CAPSULE PO SCH ×2 (09:00→21:00)
[2020-02-17] MEDS: PANTOPRAZOLE SODIUM 40 MG DR TABLET PO SCH (09:00)
[2020-02-17 12:30] VITALS: BP 99/75
[2020-02-17 15:29] VITALS: BP 105/51
[2020-02-17] MEDS: ONDANSETRON HCL 4 MG/2 ML VIAL IVP PRN (17:36)
[2020-02-17] MEDS: ACETAMINOPHEN 325 MG TABLET PO PRN (17:36)
[2020-02-17 20:32] VITALS: BP 134/64
[2020-02-18 00:15] VITALS: BP 98/71
[2020-02-18] MEDS: ACETAMINOPHEN 650 MG RECTAL SUPPOSITORY PR PRN ×2 (00:37→19:59)
[2020-02-18] MEDS: MetroNIDAZOLE 500 MG/NACL 100 ML IV SCH ×2 (03:36→15:13)
[2020-02-18 03:43] VITALS: BP 112/77
[2020-02-18] MEDS: LevETIRAcetam 500 MG in DEXTROSE 5%-WATER 100 ML IV SCH ×2 (05:31→16:56)
[2020-02-18 08:00] VITALS: BP 112/82
[2020-02-18] MEDS: DOCUSATE SODIUM 100 MG CAPSULE PO SCH ×2 (08:00→21:00)
[2020-02-18] MEDS: HYDROXYCHLOROQUINE SULFATE 200 MG TABLET PO SCH ×2 (08:00→21:00)
[2020-02-18] MEDS: HEPARIN SODIUM,PORCINE 5,000 UNITS/ML VIAL SQ SCH ×3 (08:00→15:13)
[2020-02-18] MEDS: PANTOPRAZOLE SODIUM 40 MG DR TABLET PO SCH (08:00)
[2020-02-18] MEDS: ZINC SULFATE 220 MG CAPSULE PO SCH ×2 (08:01→21:00)
[2020-02-18] MEDS: ONDANSETRON HCL 4 MG/2 ML VIAL IVP PRN ×2 (11:49→19:59)
[2020-02-18 15:33] VITALS: BP 114/83
[2020-02-18 19:42] VITALS: BP 136/80
[2020-02-19] MEDS: HEPARIN SODIUM,PORCINE 5,000 UNITS/ML VIAL SQ SCH ×4 (01:00→16:00)
[2020-02-19 02:49] VITALS: BP 116/76
[2020-02-19] MEDS: ONDANSETRON HCL 4 MG/2 ML VIAL IVP PRN (02:52)
[2020-02-19] MEDS: ACETAMINOPHEN 650 MG RECTAL SUPPOSITORY PR PRN (02:52)
[2020-02-19] MEDS: LevETIRAcetam 500 MG in DEXTROSE 5%-WATER 100 ML IV SCH (04:42)
[2020-02-19] MEDS: HYDROXYCHLOROQUINE SULFATE 200 MG TABLET PO SCH ×2 (08:17→21:00)
[2020-02-19] MEDS: DOCUSATE SODIUM 100 MG CAPSULE PO SCH ×3 (08:17→21:00)
[2020-02-19] MEDS: PANTOPRAZOLE SODIUM 40 MG DR TABLET PO SCH (08:18)
[2020-02-19] MEDS: ZINC SULFATE 220 MG CAPSULE PO SCH ×2 (08:18→21:00)
[2020-02-19 08:30] LABS: APPEARANCE,URINE CLEAR (CLEAR); GLUCOSE, URINE (UA) 100 mg/dL (NEGATIVE); KETONES,URINE 40 mg/dL (NEGATIVE); LEUKOCYTE ESTERASE ,URINE SMALL (NEGATIVE); NITRATE,URINE POSITIVE (NEGATIVE); OCCULT BLOOD,URINE MODERATE (NEGATIVE); PH,URINE 6.5 (5.0-8.0); PROTEIN,URINE SEE CONFIRM (NEGATIVE)
[2020-02-19 08:35] VITALS: BP 112/89
[2020-02-19 08:46] LABS: BILIRUBIN,URINE PRELIM. POSITIVE (NEGATIVE)
[2020-02-19 09:01] LABS: SULFOSALICYLIC ACID,URINE 4+ (Negative); YEAST,URINE None Seen /HPF (None Seen)
[2020-02-19 09:02] LABS: BACTERIA,URINE Few /HPF (None Seen); SQUAMOUS EPITHELIAL CELL,UR Few /LPF (None Seen)
[2020-02-19 09:21] LABS: EOSINOPHILS % (AUTO) 0 % (1.0-6.0); HEMATOCRIT 39.4 % (36-46); HEMOGLOBIN 12.7 g/dL (12.0-16.0); LYMPHOCYTES # (AUTO) 0.5 K/uL (1.0-4.8); LYMPHOCYTES % (AUTO) 12.1 % (22.0-44.0); MEAN CORPUSCULAR HEMOGLOBIN 26.1 pg (26.0-34.0); MEAN CORPUSCULAR HGB CONC 32.2 G/dL (31.0-37.0); MEAN CORPUSCULAR VOLUME 81 fL (80-100); MONOCYTES # (AUTO) 0.3 K/uL (0.1-1.0); MONOCYTES % (AUTO) 7.7 % (2.0-9.0); NEUTROPHILS # (AUTO) 3.3 K/uL (1.8-7.7); NEUTROPHILS % (AUTO) 80.2 % (40.0-70.0); PLATELET COUNT (AUTO) 172 K/uL (150-450); RED BLOOD CELL COUNT(AUTO) 4.87 MIL/uL (4.00-5.20); RED CELL DISTRIBUTION WIDTH 18.2 % (11.5-14.5)
[2020-02-19 09:28] LABS: ANION GAP 13 mmol/L (8-16); CALCIUM, TOTAL 8.6 mg/dL (8.8-10.5); CARBON DIOXIDE 30 mmol/L (22-29); CHLORIDE 105 mmol/L (98-107); CREATININE 0.66 mg/dL (0.60-1.30); GLOMERULAR FILTR. RATE CALC > 60 mL/min (>60); GLUCOSE,RANDOM 109 mg/dL (70-110); POTASSIUM 3.1 mmol/L (3.5-5.1); SODIUM SERUM 148 mmol/L (136-145); UREA NITROGEN, BLOOD 20 mg/dL (7-18)
[2020-02-19] MEDS: POTASSIUM CHLORIDE 20 MEQ ER TABLET PO PRN ×3 (10:45→11:00)
[2020-02-19 12:21] LABS: PHOSPHORUS 2.4 mg/dL (2.5-4.9)
[2020-02-19 12:44] VITALS: BP 116/71
[2020-02-19 16:27] VITALS: BP 117/82
[2020-02-19 20:00] VITALS: BP 108/78
[2020-02-20] MEDS: HEPARIN SODIUM,PORCINE 5,000 UNITS/ML VIAL SQ SCH ×3 (08:00→15:23)
[2020-02-20] MEDS: ZINC SULFATE 220 MG CAPSULE PO SCH ×2 (08:33→21:00)
[2020-02-20] MEDS: PANTOPRAZOLE SODIUM 40 MG DR TABLET PO SCH (08:33)
[2020-02-20] MEDS: HYDROXYCHLOROQUINE SULFATE 200 MG TABLET PO SCH ×2 (08:33→21:00)
[2020-02-20] MEDS: DOCUSATE SODIUM 100 MG CAPSULE PO SCH ×2 (08:33→21:00)
[2020-02-20 20:30] VITALS: BP 116/78
[2020-02-21] VITALS: BP 103/74
[2020-02-21 04:30] VITALS: BP 109/91
[2020-02-21] MEDS: HEPARIN SODIUM,PORCINE 5,000 UNITS/ML VIAL SQ SCH ×3 (08:00→16:00)
[2020-02-21 08:15] VITALS: BP 112/86
[2020-02-21] MEDS: PANTOPRAZOLE SODIUM 40 MG DR TABLET PO SCH ×2 (09:00→15:42)
[2020-02-21] MEDS: DOCUSATE SODIUM 100 MG CAPSULE PO SCH ×2 (09:00→22:14)
[2020-02-21] MEDS: ZINC SULFATE 220 MG CAPSULE PO SCH ×2 (09:00→22:14)
[2020-02-21 13:13] VITALS: BP 118/82
[2020-02-21] MEDS: POTASSIUM CHLORIDE 20 MEQ ER TABLET PO PRN (15:42)
[2020-02-21 20:00] VITALS: BP 105/72
[2020-02-22] VITALS: BP 109/83
[2020-02-22] MEDS: HEPARIN SODIUM,PORCINE 5,000 UNITS/ML VIAL SQ SCH ×3 (00:40→16:00)
[2020-02-22 04:00] VITALS: BP 107/91
[2020-02-22 08:20] VITALS: BP 117/78
[2020-02-22] MEDS: POTASSIUM CHLORIDE 20 MEQ ER TABLET PO PRN (08:52)
[2020-02-22] MEDS: DOCUSATE SODIUM 100 MG CAPSULE PO SCH ×2 (08:52→21:10)
[2020-02-22] MEDS: ZINC SULFATE 220 MG CAPSULE PO SCH ×2 (08:52→21:10)
[2020-02-22 12:05] VITALS: BP 122/85
[2020-02-22] MEDS ORDERED: ALBUTEROL SULFATE HFA 90 MCG/PUFF 8 GM INHALER IH PRN (13:45)
[2020-02-22 16:14] VITALS: BP 111/83
[2020-02-22 20:00] VITALS: BP 113/67
[2020-02-23] VITALS (7 sets, daily range): BP systolic 100–118; BP diastolic 72–92
[2020-02-23] MEDS: HEPARIN SODIUM,PORCINE 5,000 UNITS/ML VIAL SQ SCH ×3 (00:41→15:48)
[2020-02-23] MEDS: PANTOPRAZOLE SODIUM 40 MG DR TABLET PO SCH (08:32)
[2020-02-23] MEDS: ZINC SULFATE 220 MG CAPSULE PO SCH ×2 (08:33→21:44)
[2020-02-23] MEDS: DOCUSATE SODIUM 100 MG CAPSULE PO SCH ×2 (08:33→21:00)
[2020-02-23] MEDS: POTASSIUM CHLORIDE 20 MEQ ER TABLET PO PRN (15:57)
[2020-02-24 04:00] VITALS: BP 127/84
[2020-02-24] MEDS: DOCUSATE SODIUM 100 MG CAPSULE PO SCH ×3 (07:56→21:00)
[2020-02-24] MEDS: HEPARIN SODIUM,PORCINE 5,000 UNITS/ML VIAL SQ SCH ×3 (07:56→15:09)
[2020-02-24] MEDS: PANTOPRAZOLE SODIUM 40 MG DR TABLET PO SCH (08:04)
[2020-02-24] MEDS: ZINC SULFATE 220 MG CAPSULE PO SCH ×3 (08:04→21:00)
[2020-02-24 12:12] VITALS: BP 110/70
[2020-02-24] MEDS: POTASSIUM CHLORIDE 20 MEQ ER TABLET PO PRN (13:07)
[2020-02-24 16:50] VITALS: BP 102/73
[2020-02-24 20:00] VITALS: BP 113/76
[2020-02-24 23:58] VITALS: BP 106/71
[2020-02-25 04:00] VITALS: BP 109/76
[2020-02-25 08:00] VITALS: BP 110/84
[2020-02-25] MEDS: PANTOPRAZOLE SODIUM 40 MG DR TABLET PO SCH (08:33)
[2020-02-25] MEDS: DOCUSATE SODIUM 100 MG CAPSULE PO SCH ×2 (08:33→22:12)
[2020-02-25] MEDS: ZINC SULFATE 220 MG CAPSULE PO SCH ×2 (08:33→22:11)
[2020-02-25] MEDS: HEPARIN SODIUM,PORCINE 5,000 UNITS/ML VIAL SQ SCH ×3 (08:33→16:36)
[2020-02-25 12:00] VITALS: BP 117/83
[2020-02-25] MEDS: POTASSIUM CHLORIDE 20 MEQ ER TABLET PO PRN (14:51)
[2020-02-25 16:00] VITALS: BP 108/79
[2020-02-25 20:00] VITALS: BP 103/66
[2020-02-26] VITALS: BP 108/69
[2020-02-26] MEDS: HEPARIN SODIUM,PORCINE 5,000 UNITS/ML VIAL SQ SCH ×3 (00:59→16:33)
[2020-02-26 04:00] VITALS: BP 115/80
[2020-02-26 09:00] VITALS: BP 105/77
[2020-02-26] MEDS: DOCUSATE SODIUM 100 MG CAPSULE PO SCH ×2 (09:37→20:38)
[2020-02-26] MEDS: PANTOPRAZOLE SODIUM 40 MG DR TABLET PO SCH (09:37)
[2020-02-26] MEDS: ZINC SULFATE 220 MG CAPSULE PO SCH ×2 (09:37→20:38)
[2020-02-26 12:40] VITALS: BP 108/77
[2020-02-26 16:52] LABS: ANION GAP 4 mmol/L (8-16); CALCIUM, TOTAL 8.6 mg/dL (8.8-10.5); CARBON DIOXIDE 32 mmol/L (22-29); CHLORIDE 105 mmol/L (98-107); CREATININE 0.65 mg/dL (0.60-1.30); GLOMERULAR FILTR. RATE CALC > 60 mL/min (>60); GLUCOSE,RANDOM 123 mg/dL (70-110); POTASSIUM 3.8 mmol/L (3.5-5.1); SODIUM SERUM 141 mmol/L (136-145); UREA NITROGEN, BLOOD 16 mg/dL (7-18)
[2020-02-26 20:00] VITALS: BP 111/73
[2020-02-27] VITALS: BP 101/73
[2020-02-27 04:00] VITALS: BP 101/71
[2020-02-27] MEDS: ZINC SULFATE 220 MG CAPSULE PO SCH ×2 (08:47→20:51)
[2020-02-27] MEDS: DOCUSATE SODIUM 100 MG CAPSULE PO SCH ×2 (08:47→20:51)
[2020-02-27] MEDS: HEPARIN SODIUM,PORCINE 5,000 UNITS/ML VIAL SQ SCH ×3 (08:47→16:00)
[2020-02-27] MEDS: PANTOPRAZOLE SODIUM 40 MG DR TABLET PO SCH (08:47)
[2020-02-27 08:55] VITALS: BP 108/76
[2020-02-27 12:00] VITALS: BP 98/73
[2020-02-27] MEDS: ACETAMINOPHEN 325 MG TABLET PO PRN (14:28)
[2020-02-27 15:47] VITALS: BP 120/72
[2020-02-27 20:00] VITALS: BP 112/78
[2020-02-28] VITALS: BP 109/56
[2020-02-28 04:00] VITALS: BP 111/81
[2020-02-28] MEDS: HEPARIN SODIUM,PORCINE 5,000 UNITS/ML VIAL SQ SCH ×3 (08:00→16:00)
[2020-02-28] MEDS: ZINC SULFATE 220 MG CAPSULE PO SCH ×2 (09:00→21:00)
[2020-02-28] MEDS: PANTOPRAZOLE SODIUM 40 MG DR TABLET PO SCH (09:00)
[2020-02-28] MEDS: DOCUSATE SODIUM 100 MG CAPSULE PO SCH ×2 (09:00→21:00)
[2020-02-28 09:23] VITALS: BP 103/70
[2020-02-28] MEDS: ACETAMINOPHEN 325 MG TABLET PO PRN (12:13)
[2020-02-28 12:15] VITALS: BP 110/79
[2020-02-28 17:26] VITALS: BP 110/81
[2020-02-28 20:00] VITALS: BP 104/72
[2020-02-29] VITALS: BP 111/77
[2020-02-29] MEDS: ACETAMINOPHEN 325 MG TABLET PO PRN (00:48)
[2020-02-29 04:00] VITALS: BP 106/75
[2020-02-29] MEDS: HEPARIN SODIUM,PORCINE 5,000 UNITS/ML VIAL SQ SCH ×4 (08:00→23:00)
[2020-02-29] MEDS: ZINC SULFATE 220 MG CAPSULE PO SCH ×2 (09:00→21:00)
[2020-02-29] MEDS: DOCUSATE SODIUM 100 MG CAPSULE PO SCH ×2 (09:00→21:00)
[2020-02-29] MEDS: PANTOPRAZOLE SODIUM 40 MG DR TABLET PO SCH (09:00)
[2020-02-29 12:48] VITALS: BP 120/71
[2020-02-29 16:00] VITALS: BP 117/79
[2020-02-29 21:23] VITALS: BP 105/76
[2020-03-01 04:14] VITALS: BP 103/77
[2020-03-01] MEDS: HEPARIN SODIUM,PORCINE 5,000 UNITS/ML VIAL SQ SCH ×3 (07:22→23:15)
[2020-03-01] MEDS: DOCUSATE SODIUM 100 MG CAPSULE PO SCH ×2 (07:23→21:00)
[2020-03-01] MEDS: ZINC SULFATE 220 MG CAPSULE PO SCH ×2 (07:23→21:33)
[2020-03-01] MEDS: PANTOPRAZOLE SODIUM 40 MG DR TABLET PO SCH (07:23)
[2020-03-01 08:26] VITALS: BP 108/78
[2020-03-01 11:40] VITALS: BP 105/73
[2020-03-01 20:00] VITALS: BP 131/79
[2020-03-02] VITALS: BP 111/77
[2020-03-02 04:00] VITALS: BP 108/80
[2020-03-02] MEDS: HEPARIN SODIUM,PORCINE 5,000 UNITS/ML VIAL SQ SCH ×3 (08:00→16:00)
[2020-03-02 08:16] VITALS: BP 107/81
[2020-03-02] MEDS: ZINC SULFATE 220 MG CAPSULE PO SCH ×2 (08:23→20:25)
[2020-03-02] MEDS: DOCUSATE SODIUM 100 MG CAPSULE PO SCH ×2 (08:24→20:26)
[2020-03-02] MEDS: PANTOPRAZOLE SODIUM 40 MG DR TABLET PO SCH (08:24)
[2020-03-02 11:39] VITALS: BP 118/76
[2020-03-02 15:54] VITALS: BP 109/75
[2020-03-02 20:00] VITALS: BP 111/78
[2020-03-03] VITALS: BP 116/67
[2020-03-03 04:00] VITALS: BP 109/76
[2020-03-03] MEDS: HEPARIN SODIUM,PORCINE 5,000 UNITS/ML VIAL SQ SCH ×3 (08:00→16:00)
[2020-03-03] MEDS: PANTOPRAZOLE SODIUM 40 MG DR TABLET PO SCH (08:50)
[2020-03-03] MEDS: DOCUSATE SODIUM 100 MG CAPSULE PO SCH ×2 (08:50→20:52)
[2020-03-03] MEDS: ZINC SULFATE 220 MG CAPSULE PO SCH ×2 (08:50→20:52)
[2020-03-03 09:09] VITALS: BP 113/78
[2020-03-03 13:16] VITALS: BP 113/77
[2020-03-03 15:19] VITALS: BP 105/72
[2020-03-03 20:00] VITALS: BP 102/83
[2020-03-04 01:18] VITALS: BP 106/75
[2020-03-04 06:17] VITALS: BP 117/78
[2020-03-04 07:56] VITALS: BP 117/89
[2020-03-04] MEDS: HEPARIN SODIUM,PORCINE 5,000 UNITS/ML VIAL SQ SCH ×5 (09:44→23:49)
[2020-03-04] MEDS: PANTOPRAZOLE SODIUM 40 MG DR TABLET PO SCH (09:45)
[2020-03-04] MEDS: ZINC SULFATE 220 MG CAPSULE PO SCH ×2 (09:45→23:39)
[2020-03-04] MEDS: DOCUSATE SODIUM 100 MG CAPSULE PO SCH ×2 (09:45→23:39)
[2020-03-04 11:03] VITALS: BP 117/68
[2020-03-04 16:07] VITALS: BP 108/78
[2020-03-04 19:34] VITALS: BP 99/69
[2020-03-05 00:05] VITALS: BP 121/80
[2020-03-05 05:45] VITALS: BP 102/69
[2020-03-05] MEDS: DOCUSATE SODIUM 100 MG CAPSULE PO SCH (07:55)
[2020-03-05] MEDS: PANTOPRAZOLE SODIUM 40 MG DR TABLET PO SCH (07:55)
[2020-03-05] MEDS: HEPARIN SODIUM,PORCINE 5,000 UNITS/ML VIAL SQ SCH (07:55)
[2020-03-05 08:48] VITALS: BP 114/82
[2020-03-05] MEDS: ZINC SULFATE 220 MG CAPSULE PO SCH (09:00)
[2020-03-05] MEDS ORDERED: LEVE250T55 PO ×2 (11:56→11:57)
[2020-03-05 12:01] VITALS: BP 92/63
== END 2020-03-05 14:50 | disposition home or self-care (01) | DRG 177 ==
LOC: EMS 18:46 → 5N 02-12 00:09
PROVIDERS: ADMIT Internal Medicine; ATTEND Internal Medicine
DX: U07.1 COVID-19 (principal); E43 Unspecified severe protein-calorie malnutrition; J12.89 Other viral pneumonia; D61.818 Other pancytopenia; R64 Cachexia; Z68.1 Body mass index [BMI] 19.9 or less, adult; F84.0 Autistic disorder; R65.10 Systemic inflammatory response syndrome (SIRS) of non-infectious origin without acute organ dysfunction; C95.90 Leukemia, unspecified not having achieved remission; E87.6 Hypokalemia; J45.909 Unspecified asthma, uncomplicated; D64.9 Anemia, unspecified; A59.9 Trichomoniasis, unspecified; Z91.14 Patient's other noncompliance with medication regimen; R82.81 Pyuria; D69.6 Thrombocytopenia, unspecified; G40.909 Epilepsy, unspecified, not intractable, without status epilepticus; Z91.19 Patient's noncompliance with other medical treatment and regimen; Z88.6 Allergy status to analgesic agent; K75.9 Inflammatory liver disease, unspecified; Z90.49 Acquired absence of other specified parts of digestive tract; F41.9 Anxiety disorder, unspecified; F12.90 Cannabis use, unspecified, uncomplicated
CPT/HCPCS: 36600; 70450; 71260; 72193; 74160; 82728; 82805; 83520; 83605; 83615; 83735; 84100; 84132; 85379; 85384; 86140; 87040; 87086; 87389; 87635; 87804; 93005; 97116; 97163; 97166; 97530; 97535; J0456; J0712; J1644; J2060; J2405; J3411; J3480; J3490; J7040; J7050; J7060

== ENCOUNTER 2020-08-16 11:53 | Emergency (ER) | payer MEDICARE, OTHER ==
[~2020-08-16] VITALS: Ht 152.4 cm; Wt 54.5 kg
[~2020-08-16 11:53] MED LIST changes: +LEVE250T55 PO
[2020-08-16 12:02] VITALS: BP 112/73
== END 2020-08-16 16:00 | disposition left against medical advice (07) ==
LOC: EMS 12:03
DX: R10.9 Unspecified abdominal pain (principal); Z53.21 Procedure and treatment not carried out due to patient leaving prior to being seen by health care provider

== ENCOUNTER 2021-01-31 15:24 | Emergency (ER) | payer MEDICARE, OTHER ==
[~2021-01-31] VITALS: Ht 152.4 cm; Wt 52.3 kg
[2021-01-31] MEDS ORDERED: IBUPROFEN 600 MG TABLET PO ONE (16:30)
[2021-01-31 17:00] VITALS: BP 122/71
== END 2021-01-31 17:32 | disposition home or self-care (01) ==
LOC: EMS 15:26
DX: G43.909 Migraine, unspecified, not intractable, without status migrainosus (principal); J45.909 Unspecified asthma, uncomplicated; F12.90 Cannabis use, unspecified, uncomplicated; Z88.5 Allergy status to narcotic agent
CPT/HCPCS: 99282; Z7502; Z7610